=== PATIENT | female | born 1980 | race Caucasian/White ===

== ENCOUNTER 2024-03-28 01:13 | Inpatient (IN) | payer OTHER, SELFPAY ==
--- OUTSIDE RECORDS SUMMARY | 2024-03-28 01:15 | XMS REPORT | Continuity of Care Document ---
Author Name Unknown Address [address] [place] [address] [place], [place] [address]ect Address [address] [place] [address] [address] [place] [address] Care Team Providers Care Radio Commentator Name Role Phone NIC Attending Clinician Unavailable NIC Admitting Clinician Unavailable Encounters Start Date/Time End Date/Time Encounter Type Admission Type Attending Clinicians Care Facility Care Department Encounter ID Source 2022-01-20 00:00:00 2022-01-20 00:00:00 Outpatient [facility] [id number] [facility] Program
[2024-03-28] MEDS ORDERED: NITROGLYCERIN 1 GM PKT TD ONE (01:51)
[2024-03-28] MEDS ORDERED: LORAZEPAM 1 MG TABLET ONE (01:52)
[2024-03-28 02:20] LABS: Arterial Blood Carboxyhemoglob 1.1 % (0-1.5); Blood Gas Oxyhemoglobin 77.9 % (94-97); Blood Gas THB 12.9 g/dl (12-18); Blood O2 Saturation 80.1 % (92-98.5)
[2024-03-28 02:27] LABS: Absolute Basophils 0.1 K/uL (0-0.5); Absolute Eosinophils 0.1 K/uL (0-0.5); Absolute Lymphocytes (CBC) 2.7 K/uL (0.7-4.9); Absolute Monocytes 0.5 K/uL (0.1-1.3); Absolute Neutrophil 5.3 K/uL (1.8-8.0); Basophils % 0.6 % (0-1.3); Eosinophils % 0.6 % (0-4.4); Hematocrit 39.6 % (36.0-45.0); Hemoglobin 13.1 g/dL (12.0-15.0); Lymphocytes % 31.1 % (15.3-44.8); MCV 90.9 fL (80-100); MPV 8.8 fL (7.6-11.3); Monocytes % 6.1 % (3.3-12.3); Neutrophils % 61.6 % (41.7-73.7); Platelets 208 thou/uL (152-406); RBC Red Blood Cell Count 4.36 M/uL (3.86-4.86); Red Cell Distribution Width 14.4 % (12.1-15.2)
[2024-03-28 02:28] LABS: PT Prothrombin Time 11.8 SECONDS (9.4-12.5); PTT, Activated Partial Thromb 30.8 SECONDS (24.3-36.9); Protime INR 1.06
[2024-03-28] MEDS ORDERED: ALBUTEROL 2.5 MG/3 ML NEB SOL ONE (02:31)
[2024-03-28] MEDS ORDERED: ONDANSETRON 4 MG (ODT) TAB ONE (02:31)
[2024-03-28] MEDS ORDERED: METHYLPREDNISOLONE 125 MG INJ ONE (02:31)
[2024-03-28] MEDS ORDERED: HYDROCODONE/APAP 5/325 MG TAB ONE (02:31)
[2024-03-28 02:32] LABS: SARS-CoV-2 Antigen CONTROL BLUE LINE VIS/BG OK; SARS-CoV-2 Antigen Rapid Res Negative (Negative)
[2024-03-28 02:44] LABS: ALT/SGPT 88 U/L (13-56); AST/SGOT 95 U/L (15-37); Albumin 3.2 g/dL (3.4-5.0); Albumin/Globulin Ratio 0.9 (1.1-1.8); Alkaline Phosphatase 94 U/L (45-117); Anion Gap 9.5 mEq/L (5.0-15.0); BUN Blood Urea Nitrogen 18 mg/dL (7-18); Bicarbonate 23 mEq/L (21-32); Bilirubin Direct 0.2 mg/dL (0-0.2); Bilirubin Indirect, Calculated 0.3 mg/dL (0.2-0.8); Bilirubin Total 0.5 mg/dL (0.2-1.0); Creatine Phosphokinase 75 U/L (26-192); Globulin 3.6 g/dL (2.3-3.5); Glomerular Filtration Rate 75 ml/min (=/>90); Glucose Level 115 mg/dL (74-106); Lipase 19 U/L (13-75); Magnesium 1.8 mg/dL (1.6-2.4); NT PRO-BNP 3828 pg/mL (<125); Potassium 3.5 mEq/L (3.5-5.1); Protein, Total 6.8 g/dL (6.4-8.2); Sodium Level 137 mEq/L (136-145); Troponin High Sensitivity 32.9 pg/mL (<58.9)
[2024-03-28 02:52] LABS: C-Reactive Protein < 2.90 mg/L (<3.00)
[2024-03-28 02:59] LABS: Specific Gravity 1.029 (1.005-1.030); Urine Bacteria >50 /HPF (<20); Urine Bilirubin NEGATIVE (Negative); Urine Blood Negative (Negative); Urine Clarity Extremely Turbid (Clear); Urine Color Yellow (Yellow); Urine Culture Reflex Order NOT NEEDED; Urine Glucose NEGATIVE (Negative); Urine Ketones NEGATIVE (Negative); Urine Micro Reflex YN NO BILL MICROSCOPIC; Urine Mucus 2+ /HPF (None Seen); Urine Nitrite 2+ (Negative); Urine Protein 1+ (Negative); Urine RBC <5 /HPF (None Seen); Urine Urobilinogen Normal (Normal); Urine WBC <5 /HPF (<5)
--- NOTE | 2024-03-28 03:31 | RAD REPORT ---
EXAM DESCRIPTION: Extrem Venous W Compress Shaw [facility]: US EXTREMITY VEINS BILATERAL CLINICAL HISTORY: 43 years Female; bilateral lower leg swelling TECHNIQUE: Spectral analysis and color/grayscale sonographic images of both legs were obtained utilizing a high- frequency linear array transducer supplemented with color Doppler, compression and augmentation techniques. COMPARISON: None. FINDINGS: Right leg veins: Common femoral: normal Greater saphenous: normal Superficial femoral: normal Popliteal: normal Calf Veins: normal Left leg veins: Common femoral: normal Greater saphenous: normal Superficial femoral: normal Popliteal: normal Calf Veins: normal IMPRESSION: 1. No sonographic evidence for lower extremity deep venous thrombosis in either leg. Electronically signed by: Shoaib Yung MD 03/28/2024 02:51 AM CDT RP Z9 Due to temporary technical issues with the PACS/[employer] scribe reporting system, reports are being signed by the in-house radiologist without review as a courtesy to ensure prompt reporting the interpreting radiologist is fully responsible for the content of the report. Transcribed Date/Time: 03/28/2024 3:30 AM
--- NOTE | 2024-03-28 04:42 | ER ---
Nurse's Notes [facility] Name: Brian Woods Age: 43 yrs Sex: Female : 1980 Arrival Date: 03/28/2024 Time: 01:13 Bed 18 Private MD: Diagnosis: Acute on chronic diastolic (congestive) heart failure;Hypoxemia Presentation: 03/28 01:29 Chief complaint: Patient states: REALLY SHORT OF BREATH FOR THE LAST FEW DAYS. HAD vc1 COVID A MONTH AGO BUT I FEEL WORSE NOW. I AM REALLY TIRED AND MY LEFT LEFT IS ALSO SWELLING. Coronavirus screen: Client denies travel out of the [place] in the last 14 days. At this time, the client does not indicate any symptoms associated with coronavirus-19. Coronavirus screen: Client reports previous positive COVID test result. POSITIVE 1 MONTH AGO. Ebola Screen: Patient negative for fever greater than or equal to 101.5 degrees Fahrenheit, and additional compatible Ebola Virus Disease symptoms Patient denies exposure to infectious person. Patient denies travel to an Ebola-affected area in the 21 days before illness onset. No symptoms or risks identified at this time. Initial Sepsis Screen: Does the patient meet any 2 criteria? RR > 20 per min. HR > 90 bpm. Yes Does the patient have a suspected source of infection? No. Patient's initial sepsis screen is negative. Risk Assessment: Do you want to hurt yourself or someone else? Patient reports no desire to harm self or others. Onset of symptoms is unknown. 01:29 Method Of Arrival: Ambulatory vc1 01:29 Acuity: ZUNILDA 3 vc1 Triage Assessment: 01:34 General: Appears distressed, uncomfortable, well groomed, well developed, Behavior is vc1 cooperative, anxious. Pain: Complains of pain in left leg. Neuro: Level of Consciousness is awake, alert, obeys commands, Oriented to person, place, time, situation, Appropriate for age. Cardiovascular: Edema LEFT LEG Rhythm is sinus tachycardia. Respiratory: Reports shortness of breath at rest on exertion labored breathing Airway is patent Trachea midline Respiratory effort is even, labored, Respiratory pattern is symmetrical, tachypnea Onset: The symptoms/episode began/occurred FEW DAYS, the patient has moderate shortness of breath. Derm: Skin is intact, is healthy with good turgor, Skin is dry, Skin is normal, Skin temperature is warm. Musculoskeletal: Circulation, motion, and sensation intact. Range of motion: intact in all extremities. 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 - Infectious Disease History:: Denies. - Social history:: Smoking status: Patient reports the use of cigarette tobacco products, denies chronic smoking, but will smoke occasionally, RECENTLY QUIT SMOKING CIGARETTES AFTER SMOKING 15 YEARS., Reported history of juuling and/or vaping. - Family history:: not pertinent. Screenin:[facility] ED Fall Risk Assessment (Adult) History of falling in the last 3 months, vc1 including since admission No falls in past 3 months (0 pts) Confusion or Disorientation No (0 pts) Intoxicated or Sedated No (0 pts) Impaired Gait No (0 pts) Mobility Assist Device Used No (0 pt) Altered Elimination No (0 pt) Score/Fall Risk Level 0 - 2 = Low Risk Oriented to surroundings, Maintained a safe environment, Educated pt \T\ family on fall prevention, incl call for assistance when getting out of bed. Abuse screen: Denies threats or abuse. Nutritional screening: No deficits noted. Tuberculosis screening: No symptoms or risk factors identified. Assessment: 01:20 Reassessment: Patient and/or family updated on plan of care and expected duration. Pain br2 level reassessed. Patient is alert, oriented x 3, equal unlabored respirations, skin warm/dry/pink. General: Appears uncomfortable, Behavior is cooperative, anxious. Cardiovascular: Reports shortness of breath, Heart tones present Capillary refill < 3 seconds Edema is 1+ to left ankle, left foot, left toes, right ankle, right foot and right toes pitting to right ankle, right foot and right toes. Cardiovascular: Reports. Cardiovascular: Reports shortness of breath, Heart tones Edema. Respiratory: Reports shortness of breath at rest on exertion Airway is patent Respiratory effort is asymmetrical, pursed lip, Respiratory pattern is symmetrical, tachypnea Breath sounds are clear bilaterally. Breath sounds are diminished bilaterally. Onset: The symptoms/episode began/occurred 1 week ago. 03:37 Reassessment: Patient and/or family updated on plan of care and expected duration. Pain br2 level reassessed. Patient is alert, oriented x 3, equal unlabored respirations, skin warm/dry/pink. PT RETURNS FROM CT. NC \T\3L O2 SATS 85%. INCREASE 02 FLOW RATE TO 4L N/C AND SATS REMAIN AT 87%. DR TREVIZO NOTIFIED. VERBAL ORDER TO SWITCH TO SIMPLE MASK. SIMPLE MASK AT 5L PT AT 90%. Cardiovascular: 04:06 Reassessment: Patient and/or family updated on plan of care and expected duration. Pain br2 level reassessed. Patient is alert, oriented x 3, equal unlabored respirations, skin warm/dry/pink. UNABLE TO KEEP PT'S 02 SATS ABOVE 85%. PT IS ON SIMPLE MASK \T\7L AT 84% SATS. DR GARZON NOTIFED. NON-REBREATHER PLACED ON PT \T\10L UNTIL RT ARRIVES WITH BIPAP...PT AT 90%. 04:10 Reassessment: RT AT BEDSIDE PUTTING PT ON BIPAP. br2 04:21 Reassessment: Patient and/or family updated on plan of care and expected duration. Pain br2 level reassessed. Patient is alert, oriented x 3, equal unlabored respirations, skin warm/dry/pink. PT IS ON BIPAP AT 50% O2 SATS AT 92-93% Patient states symptoms have improved. 07:00 Reassessment: BED ASSIGNED, ADMIT PENDING. bp Vital Signs: 01:29 BP 135 / 96; Pulse 100; Resp 24; Pulse Ox 84% on R/A; Weight 81.65 kg; Height 5 ft. 5 vc1 in. ; 03:44 BP 138 / 84; Pulse 93; Resp 16; Pulse Ox 90% on 5 lpm Simple Mask; br2 04:30 BP 126 / 85; Pulse 89; Resp 16; Pulse Ox 92% on BIPAP; br2 05:30 BP 136 / 97; Pulse 91; Resp 18 S; Pulse Ox 97% on BIPAP; br2 06:30 BP 117 / 91; Pulse 85; Resp 16; Pulse Ox 99% on BIPAP; br2 07:00 BP 135 / 92; Pulse 90; Resp 18; Pulse Ox 99% ; bp 01:29 Body Mass Index 29.95 (81.65 kg, 165.1 cm) vc1 ED Course: 01:15 Patient arrived in ED. jj6 01:20 Provided Education on: plan of care. br2 01:20 Inserted saline lock: 22 gauge in right antecubital area, using aseptic technique. br2 Blood collected. Flushed with 10 mL NS. 01:28 Simón Trevizo MD is Attending Physician. sp4 01:31 Triage completed. vc1 01:32 Arm band placed on left wrist. vc1 01:36 Patient has correct armband on for positive identification. Placed in gown. Bed in low vc1 position. Call light in reach. colloid mill operator on. Pulse ox on. NIBP on. 01:42 Noemi Nuno RN is Primary Nurse. br2 01:44 SARS RAPID Sent. br2 01:44 T4 Free Sent. br2 01:45 BMP Sent. br2 01:45 CBC with Diff Sent. br2 01:45 CPK Sent. br2 01:45 Hepatic Function Sent. br2 01:46 Lipase Sent. br2 01:46 Magnesium Sent. br2 01:46 NT PRO-BNP Sent. br2 01:46 PT-INR Sent. br2 01:46 Troponin HS Sent. br2 02:28 Extrem Venous W Compression Shaw US In Process Unspecified. EDMS 02:56 Urine collected: clean catch specimen, ryan colored. oe 03:27 CT Chest For PE Angio In Process Unspecified. EDMS 04:42 Karo Bauer MD is Hospitalizing Provider. sp4 05:01 Troponin High Sensitivity Sent. br2 07:31 No provider procedures requiring assistance completed. Patient admitted, IV remains in bp place. Administered Medications: 02:41 Drug: LORazepam PO 1 mg PO once Route: PO; br2 06:04 Follow up: Response: No adverse reaction lg3 02:41 Drug: Nitroglycerin Transdermal Ointment 2 % 0.5 inches Transdermal once Route: br2 Transdermal; Site: anterior chest wall; 02:41 Drug: HYDROcodone-acetaminophen PO 5 mg-325 mg 2 tabs PO once Route: PO; br2 06:04 Follow up: Response: No adverse reaction; Marked relief of symptoms lg3 02:41 Drug: Ondansetron PO 4 mg PO once Route: PO; br2 06:04 Follow up: Response: No adverse reaction lg3 02:41 Drug: Albuterol Inhalation 2.5 mg Inhalation once Route: Inhalation; br2 02:41 Drug: MethylPrednisoLONE IVP 125 mg IVP once Route: IVP; Site: right antecubital; br2 06:04 Follow up: Response: No adverse reaction lg3 02:56 Not Given (wrong routee): methylprednisolone sodium [id number] mg IM once br2 05:00 Drug: Furosemide IVP 40 mg IVP once; give over 2 minutes Route: IVP; Site: right br2 antecubital; 06:04 Follow up: Response: No adverse reaction lg3 05:00 Drug: Aspirin PO Chewable Tablet 324 mg PO once; 81 mg tablets x 4 Route: PO; br2 06:04 Follow up: Response: No adverse reaction lg3 Medication: 01:34 VIS not applicable for this client. vc1 Outcome: 04:42 Decision to Hospitalize by Provider. sp4 07:30 Admitted to Med/surg accompanied by tech, via stretcher, room 221, bp 07:30 Condition: stable 07:30 Instructed on the need for admit, 07:31 Patient left the ED. bp Signatures: Dispatcher [employer] EDMS Maninder Flowers Brian RN Kate Balderas RN RN lg3 Yarelis Chavez jj6 Sammie Rahman RN RN vc1 Simón Trevizo MD MD sp4 Noemi Nuno RN RN br2 Corrections: (The following items were deleted from the chart) 01:45 01:44 Influenza Screen (A \T\ B)+BA.LAB.BRZ drawn and sent. br2 EDMS 03:37 01:20 Respiratory: Reports shortness of breath at rest on exertion Airway is patent br2 Respiratory effort is asymmetrical, pursed lip, Respiratory pattern is symmetrical, tachypnea Breath sounds are clear bilaterally. Onset: The symptoms/episode began/occurred 1 week ago, br2
--- NOTE | 2024-03-28 04:42 | EDPHYS ---
Physician Documentation [facility] Name: Brian Woods Age: 43 yrs Sex: Female : 1980 Arrival Date: 03/28/2024 Time: 01:13 Bed 18 Private MD: ED Physician Simón Trevizo HPI: 03/28 01:28 This 43 yrs old Female presents to ER via Unassigned with complaints of sp4 Shortness Of Breath. 02:25 43-year-old female presents with worsening shortness of breath with physical exertion sp4 and at rest for the past 3 weeks, patient states that she contracted COVID approximately 1 month ago. Now patient states she wakes up at night feeling short of breath and has to sit up on the bed. No similar prior symptoms in the past . 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 - Infectious Disease History:: Denies. - Social history:: Smoking status: Patient reports the use of cigarette tobacco products, denies chronic smoking, but will smoke occasionally, RECENTLY QUIT SMOKING CIGARETTES AFTER SMOKING 15 YEARS., Reported history of juuling and/or vaping. - Family history:: not pertinent. ROS: 02:25 Constitutional: Negative for fever, chills, and weight loss, positive dyspnea with sp4 exertion, positive shortness of breath with rest, positive chest discomfort. Positive orthopnea 02:25 All other systems are negative, Exam: 02:25 Constitutional: This is a well developed, well nourished patient who is awake, alert, sp4 and in no acute distress. Head/Face: Normocephalic, atraumatic. Eyes: Pupils equal round and reactive to light, extra-ocular motions intact. Lids and lashes normal. Conjunctiva and sclera are not injected. Cornea within normal limits. Periorbital areas with no swelling, redness, or edema. ENT: Nares patent. No nasal discharge, no septal abnormalities noted. Tympanic membranes are normal and external auditory canals are clear. Oropharynx with no redness, swelling, or masses, exudates, or evidence of obstruction, uvula midline. Mucous membranes moist. Neck: Trachea midline, no thyromegaly or masses palpated, and no cervical lymphadenopathy. Supple, full range of motion without nuchal rigidity, or vertebral point tenderness. Chest/axilla: Normal chest wall appearance and motion. Nontender with no deformity. No lesions are appreciated. Cardiovascular: Regular rate and rhythm with a normal S1 and S2. No gallops, murmurs, or rubs. Normal PMI, no JVD. No pulse deficits. Respiratory: Lungs have equal breath sounds bilaterally, clear to auscultation and percussion. No rales, rhonchi or wheezes noted. No increased work of breathing, no retractions or nasal flaring. Abdomen/GI: Soft, with normal bowel sounds. No distension or tympany. No guarding or rebound. No evidence of tenderness throughout. Back: No spinal tenderness. No costovertebral tenderness. Skin: Warm, dry with normal turgor. Normal color with no rashes, no lesions, and no evidence of cellulitis. MS/ Extremity: Pulses equal, no cyanosis. Neurovascular intact. Full, normal range of motion. Neuro: Awake and alert, GCS 15, oriented to person, place, time, and situation. Cranial nerves II-XII grossly intact. Motor strength 5/5 in all extremities. Sensory grossly intact. Psych: Awake, alert, with orientation to person, place and time. Behavior, mood, and affect are within normal limits 02:32 ECG was reviewed by the Attending Physician. EKG 0 126 normal sinus rhythm, rate 88, sp4 right ventricular hypertrophy, ST depression leads II, III, aVF, multiple ST depressions. Vital Signs: 01:29 BP 135 / 96; Pulse 100; Resp 24; Pulse Ox 84% on R/A; Weight 81.65 kg; Height 5 ft. 5 vc1 in. ; 03:44 BP 138 / 84; Pulse 93; Resp 16; Pulse Ox 90% on 5 lpm Simple Mask; br2 04:30 BP 126 / 85; Pulse 89; Resp 16; Pulse Ox 92% on BIPAP; br2 05:30 BP 136 / 97; Pulse 91; Resp 18 S; Pulse Ox 97% on BIPAP; br2 06:30 BP 117 / 91; Pulse 85; Resp 16; Pulse Ox 99% on BIPAP; br2 07:00 BP 135 / 92; Pulse 90; Resp 18; Pulse Ox 99% ; bp 01:29 Body Mass Index 29.95 (81.65 kg, 165.1 cm) vc1 MDM: 01:30 Patient medically screened. sp4 02:48 ED course: Bilateral venous Doppler ultrasound preliminary report---- negative for sp4 bilateral lower extremity DVT . 02:57 Differential diagnosis: Anxiety Reaction asthma, Bronchitis CHF exacerbation, Chronic sp4 Obstructive Pulmonary Disease pneumonia, Pneumothorax Psychogenic pulmonary edema, Pulmonary Embolism. ED course: EXAM DESCRIPTION: Extrem Venous W Compress Shaw RadLex: US EXTREMITYVEINS BILATERAL CLINICAL HISTORY: 43 years Female; bilateral lower leg swelling TECHNIQUE: Spectral analysis and color/grayscale sonographic images of both legs were obtained utilizing a high-frequency linear array transducer supplemented with color Doppler, compression and augmentation techniques. COMPARISON: None. FINDINGS: Right leg veins: Common femoral: normal Greater saphenous: normal Superficial femoral: normal Popliteal: normal Calf Veins: normal Left leg veins: Common femoral: normal Greater saphenous: normal Superficial femoral: normal Popliteal: normal Calf Veins: normal IMPRESSION: 1. No sonographic evidence for lower extremity deep venous thrombosis in either leg.. 04:38 ED course: CLINICAL HISTORY: Chest pain. COMPARISON: None. TECHNIQUE: CT sp4 CHESTANGIOGRAPHYWITH IV CONTRAST on 03/28/2024 1:41 AM CDT. MIPS reconstructions were generated. This exam was performed according to our departmental dose-optimization program, which includes automated exposure control, adjustment of the mA and/or kV according to patient size and/or use of iterative reconstruction technique. MIP images were generated. FINDINGS: Thoracic aorta is normal in course and caliber without aneurysm or dissection. Pulmonary arteries are adequately opacified without acute or chronic filling defects. The heart is normal in size. There is no pericardial effusion. Intrathoracic lymph nodes are not enlarged. There is no pleural effusion, pleural thickening or pneumothorax. Central airways are patent. Lungs are clear with no consolidation, mass or interstitial lung disease. There are no acute abnormalities within the limited images of the upper abdomen. There are no acute osseous findings. No suspicious bony lesions. IMPRESSION: No aortic dissection or aneurysm. No pulmonary embolus. No pneumonia. Electronically signed by: Franklyn Butler MD 03/28/2024 04:25 AM . 04:42 Data reviewed: vital signs, nurses notes, old medical records, lab test result(s), EKG, sp4 radiologic studies, CT scan, ultrasound. Consideration of Admission/Observation Patient was admitted/placed on observation. Escalation of care including admission/observation considered. Management of patient was discussed with the following: Hospitalist: Dr. Bauer . 04:42 ED course: CT has revealed - No aortic dissection or aneurysm. No pulmonary embolus. No sp4 pneumonia. Patient initiated on BIPAP . Stable for admission . 03/28 01: Order name: BMP; Complete Time: 02:57 4 03/28 01:29 Order name: Blood Culture Adult (2) sp4 03/28 01:29 Order name: CBC with Diff; Complete Time: 02:32 4 03/28 01:29 Order name: CPK; Complete Time: 02:57 4 03/28 01:29 Order name: Hepatic Function; Complete Time: 02:57 4 03/28 01:29 Order name: Lipase; Complete Time: 02:57 03/28 01:29 Order name: Magnesium; Complete Time: 02:57 03/28 01:29 Order name: NT PRO-BNP; Complete Time: 02:57 4 03/28 01:29 Order name: PT-INR; Complete Time: 02:32 4 03/28 01:29 Order name: Ptt, Activated; Complete Time: 02:32 4 03/28 01:29 Order name: Troponin HS; Complete Time: 02:57 4 03/28 01:29 Order name: ABG; Complete Time: 02:23 4 03/28 01:29 Order name: CRP; Complete Time: 02:57 03/28 01:29 Order name: TSH; Complete Time: 02:57 4 03/28 01:29 Order name: T4 Free; Complete Time: 02:57 4 03/28 01:29 Order name: SARS RAPID; Complete Time: 02:32 4 03/28 01:29 Order name: Influenza Screen (a \T\ B); Complete Time: 02:48 4 03/28 01:42 Order name: Urinalysis W/Microscopic; Complete Time: 04:03 4 03/28 01:42 Order name: Test, Serum; Complete Time: 02:36 sp4 03/28 04:40 Order name: Troponin High Sensitivity; Complete Time: 05:50 sp4 03/28 04:40 Order name: ABG; Complete Time: 07:16 sp4 03/28 05:43 Order name: CBC with Automated Diff EDMS 03/28 05:43 Order name: CBC with Automated Diff EDMS 03/28 05:43 Order name: Comprehensive Metabolic Panel EDMS 03/28 05:43 Order name: Comprehensive Metabolic Panel EDMS 03/28 05:43 Order name: Magnesium EDMS 03/28 05:43 Order name: Magnesium EDMS 03/28 05:43 Order name: Phosphorus EDMS 03/28 05:43 Order name: Phosphorus EDMS 03/28 01:41 Order name: CT Chest For PE Angio; Complete Time: 07:16 sp4 03/28 01:46 Order name: Extrem Venous W Compression Shaw US; Complete Time: 07:16 sp4 03/28 05:43 Order name: Echo without Doppler (2D) EDMS 03/28 01:29 Order name: Cardiac monitoring; Complete Time: 01:45 sp4 03/28 01:29 Order name: EKG - Nurse/Tech; Complete Time: 01:45 sp4 03/28 01:29 Order name: IV Saline Lock; Complete Time: :45 sp4 03/28 01:29 Order name: Labs collected and sent; Complete Time: :45 sp4 03/28 01:29 Order name: O2 Per Protocol; Complete Time: 01:47 sp4 03/28 01:29 Order name: O2 Sat Monitoring; Complete Time: 06:05 sp4 EC:32 Rate is 88 beats/min. Rhythm is regular, Normal Sinus Rhythm. QRS [place] is Normal. [place] sp4 interval is normal. QRS interval is normal. QT interval is normal. No Q waves. T waves are Inverted in leads V3, V4, V5, V6. ST Segment is depressed in leads II, III, aVF. Clinical impression: Cardiac ischemia. Interpreted by me. Reviewed by me. Administered Medications: 02:41 Drug: LORazepam PO 1 mg PO once Route: PO; br2 06:04 Follow up: Response: No adverse reaction lg3 02:41 Drug: Nitroglycerin Transdermal Ointment 2 % 0.5 inches Transdermal once Route: br2 Transdermal; Site: anterior chest wall; 02:41 Drug: HYDROcodone-acetaminophen PO 5 mg-325 mg 2 tabs PO once Route: PO; br2 06:04 Follow up: Response: No adverse reaction; Marked relief of symptoms lg3 02:41 Drug: Ondansetron PO 4 mg PO once Route: PO; br2 06:04 Follow up: Response: No adverse reaction lg3 02:41 Drug: Albuterol Inhalation 2.5 mg Inhalation once Route: Inhalation; br2 02:41 Drug: MethylPrednisoLONE IVP 125 mg IVP once Route: IVP; Site: right antecubital; br2 06:04 Follow up: Response: No adverse reaction lg3 02:56 Not Given (wrong routee): methylprednisolone sodium [id number] mg IM once br2 05:00 Drug: Furosemide IVP 40 mg IVP once; give over 2 minutes Route: IVP; Site: right br2 antecubital; 06:04 Follow up: Response: No adverse reaction lg3 05:00 Drug: Aspirin PO Chewable Tablet 324 mg PO once; 81 mg tablets x 4 Route: PO; br2 06:04 Follow up: Response: No adverse reaction lg3 Disposition: 04:41 Critical Care:. sp4 Disposition Summary: 03/28/24 04:42 Hospitalization Ordered Notes: Hospitalization Status: Inpatient Admission sp4 Provider: Karo Bauer Location: Telemetry/[facility] (Inpatient) sp4 Condition: Stable sp4 Problem: new sp4 Symptoms: have improved sp4 Bed/Room Type: Standard sp4 Room Assignment: [facility](03/28/24 06:08) [facility] Diagnosis - Acute on chronic diastolic (congestive) heart failure sp4 - Hypoxemia sp4 Forms: - Medication Reconciliation Form sp4 - SBAR form sp4 - Leadership Thank You Letter sp4 Critical care time excluding procedures: 04:41 Critical care time: Bedside Care: 36 minutes, Consultation: 12 minutes, Family sp4 Intervention: 12 minutes. Total time: 60 minutes Signatures: Dispatcher [employer] Sammie Green RN RN vc1 Simón Trevizo MD MD sp4 Shirley Vega [facility] Noemi Nuno RN RN br2 Kate Rabago RN lg3 Corrections: (The following items were deleted from the chart) 01:29 01:29 BASIC METABOLIC PANEL+C.LAB.BRZ ordered. EDMS EDMS 01: 01:29 BLOOD CULTURE*+BA.LAB.BRZ ordered. EDMS EDMS : 01:29 CBC+H.LAB.BRZ ordered. EDMS EDMS : 01:29 CREATINE PHOSPHOKINASE+C.LAB.BRZ ordered. EDMS EDMS : 01:29 HEPATIC FUNCTION+C.LAB.BRZ ordered. EDMS EDMS : 01:29 LIPASE+C.LAB.BRZ ordered. EDMS EDMS : 01:29 MAGNESIUM+C.LAB.BRZ ordered. EDMS EDMS : 01:29 PROBNP+C.LAB.BRZ ordered. EDMS EDMS : 01:29 PROTIME (+INR)+COAG.LAB.BRZ ordered. EDMS EDMS : 01:29 PTT, ACTIVATED+COAG.LAB.BRZ ordered. EDMS EDMS 01: 01:29 Troponin High Sensitivity+C.LAB.BRZ ordered. EDMS EDMS 01:30 01:30 C-REACTIVE PROTEIN+C.LAB.BRZ ordered. EDMS EDMS 01:30 01:30 THYROID STIMULAT HORMONE+C.LAB.BRZ ordered. EDMS EDMS 01:30 01:30 T4 FREE+C.LAB.BRZ ordered. EDMS EDMS 01:45 01:30 Influenza Screen (A \T\ B)+BA.LAB.BRZ ordered. EDMS EDMS 04:04 04:04 BiPap ([employer] Only)+RC.RAD.BRZ ordered. EDMS EDMS 04:40 04:40 Troponin High Sensitivity+C.LAB.BRZ ordered. EDMS EDMS 04:40 04:40 Arterial Blood Gas+RC.LAB.BRZ ordered. EDMS EDMS 06:08 04:42 sp4 kmf
[2024-03-28] MEDS ORDERED: ASPIRIN 81 MG CHEWABLE TABLET ONE (04:52)
[2024-03-28] MEDS ORDERED: FUROSEMIDE 40 MG/4 ML VIAL ONE (04:53)
[2024-03-28] MEDS ORDERED: ALBUTEROL 2.5 MG/3 ML NEB SOL NEB PRN ×2 (05:38→07:17)
--- NOTE | 2024-03-28 05:45 | P.HP ---
Certification for Inpatient Patient admitted to: Inpatient With expected LOS: >2 Midnights Practitioner: I am a practitioner with admitting privileges, knowledge of patient current condition, hospital course, and medical plan of care. Services: Services provided to patient in accordance with Admission requirements found in Title 42 Section 412.3 of the Code of Federal Regulations Patient History Date of Service: 03/28/24 Reason for admission: dyspnea History of Present Illness: Shortness of breath 43-year-old female presented to ER with complains of shortness of breath. Onset about 3 weeks ago. Reported that she had COVID in the last 1 month. She does report some dyspnea at nighttime, orthopnea, cough with yellow sputum. She did report history of tobacco use and currently occasionally vapes. On arrival in the emergency room she was noted to be hypoxemic sats were in the 80s on room air. Despite having nasal cannula she still had O2 requirement she was placed on BiPAP. Her labs were notable for an elevated BNP, normal troponin x 2 and normal CRP and no leukocytosis her COVID was also negative She was noted to have elevated BNP. A CTA was done that was negative for PE. Allergies No Known Yazan Allergy (Uncoded 02/20/17 01:33) Unknown Review of Systems 10-point ROS is otherwise unremarkable Respiratory: Shortness of Breath Physical Examination - Vital Signs Pulse: 90 Pulse Ox (%): 95 - Physical Exam General: Alert, Oriented x3 HEENT: Atraumatic, Normocephalic Cardiovascular: Regular rate/rhythm, Normal S1 S2 Gastrointestinal: Soft and benign, Non-distended, No tenderness Musculoskeletal: No clubbing - Studies Laboratory Data (last 24 hrs) 03/28/24 03/28/24 03/28/24 01:39 01:39 01:39 WBC 8.60 Hgb 13.1 Hct 39.6 Plt Count 208 PT 11.8 INR 1.06 APTT 30.8 Sodium 137 Potassium 3.5 BUN 18 Creatinine 0.96 Glucose 115 H Magnesium 1.8 Total Bilirubin 0.5 AST 95 H ALT 88 H Alkaline Phosphatase 94 Lipase 19 Microbiology Data (last 24 hrs): 03/28/24 01:39 Nasopharnyx Influenza Type A Antigen Screen - Final 03/28/24 01:39 Nasopharnyx Influenza Type B Antigen Screen - Final Assessment and Plan - Problems (Diagnosis) (1) Dyspnea Current Visit: Yes Status: Acute (2) Elevated brain natriuretic peptide (BNP) level Current Visit: Yes Status: Acute - Plan 43-year-old female presents with 3-week history of dyspnea and hypoxemia. She had COVID 1 month ago. She does have tobacco use. Noted to have elevated BNP. A CTA was done which did not show much pulmonary edema. And was negative for PE #acute hypoxemic respiratory failure #tobacco use/ #elevated BNP #recent covid 19 infection Plan: 1. admit to telemetry 2. continue O2, wean as possible 3. prn albuterol 4. check echocardiogram 5. repeat ABG 6. consider cardiology consultation 7. check sputum culture 8. repeat cxr in AM 9. repeat EKG and troponin DVT: Lovenox - Advance Directives Does patient have a Living Will: No Does patient have a Durable POA for Healthcare: No
--- NOTE | 2024-03-28 06:01 | RAD REPORT ---
CLINICAL HISTORY: Chest pain. COMPARISON: None. TECHNIQUE: CT CHEST ANGIOGRAPHY WITH IV CONTRAST on 03/28/2024 1:41 AM CDT. MIPS reconstructions were generated. This exam was performed according to our departmental dose-optimization program, which includes autom ated exposure control, adjustment of the mA and/or kV according to patient size and/or use of iterative reconstruction technique. MIP images were generated. FINDINGS: Thoracic aorta is normal in course and caliber without aneurysm or dissection. Pulmonary arteries are adequately opacified without acute or chronic filling defects. The heart is normal in size. There is no pericardial effusion. Intrathoracic lymph nodes are not enla rged. There is no pleural effusion, pleural thickening or pneumothorax. Central airways are patent. Lungs a re clear with no consolidation, mass or interstitial lung disease. There are no acute abnormalities within the limited images of the upper abdomen. There are no acute osseous findings. No suspicious bony lesions. IMPRESSION: No aortic dissection or aneurysm. No pulmonary embolus. No pneumonia. Electronically signed by: Franklyn Butler MD 03/28/2024 04:25 AM CDT RP Due to temporary technical issues with the PACS/Vayyar reporting system, reports are being gianluca d by the in-house radiologist without review as a courtesy to ensure prompt reporting the interpreting radiologist is fully responsible for the content of the report. Transcribed Date/Time: 03/28/2024 6:01 AM
[2024-03-28 07:10] LABS: Blood O2 Saturation 98.8 % (92-98.5)
[2024-03-28 07:11] LABS: Blood Gas THB 14.2 g/dl (12-18)
[2024-03-28] MEDS: ENOXAPARIN 40 MG/0.4 ML SQ SCH (09:22)
[2024-03-28 15:20] VITALS: BMI 29.9
--- NOTE | 2024-03-28 15:48 | P.PN ---
Date of Service: 03/28/24 Patient seen and examined. She reported shortness of breath has improved. She has been weaned from 100% nonrebreather to oxygen by nasal cannula which she is tolerating. She is currently on [address] chest result reviewed-no infiltrate or edema, no PE. Hypoxia likely secondary to bronchospasms/COPD exacerbation. Plan: Scheduled bronchodilators, IV steroid. Titrate oxygen. Negative procalcitonin. No indication for antibiotics at this time.
--- NOTE | 2024-03-28 16:52 | EKG ---
Test Date: 2024-03-28 Test Time: 01:26:45 Staking Technician: CARY MEASUREMENT RESULTS: Intervals: Rate: 88 OK: 142 QRSD: 100 QT: 376 QTc: 454 [place]: P: 55 OK: 142 QRS: 114 T: -54 INTERPRETIVE STATEMENTS: Normal sinus rhythm Right ventricular hypertrophy Septal infarct, age undetermined ST & T wave abnormality, consider inferior ischemia ST & T wave abnormality, consider anterolateral ischemia Abnormal ECG No previous ECG available for comparison Electronically Signed On 03-28-24 16:50:08 CDT by Jhony Agarwal
[2024-03-28] MEDS: METHYLPREDNISOLONE 40 MG INJ IV SCH (16:56)
[2024-03-28] MEDS: ACETAMINOPHEN 325 MG TABLET PO PRN (16:56)
[2024-03-28] MEDS: IPRATROPIUM BROM 0.5MG/2.5ML NEB SCH (19:10)
[2024-03-28] MEDS: ALBUTEROL 2.5 MG/3 ML NEB SOL NEB SCH (19:10)
[2024-03-29 08:02] LABS: Absolute Lymphocytes (CBC) 1.2 K/uL (0.7-4.9); Absolute Monocytes 0.6 K/uL (0.1-1.3); Absolute Neutrophil 19.5 K/uL (1.8-8.0); Basophils % 0.1 % (0-1.3); Hematocrit 42.2 % (36.0-45.0); Hemoglobin 13.7 g/dL (12.0-15.0); Lymphocytes % 5.7 % (15.3-44.8); MCH 29.5 pg (27.0-35.0); MCHC 32.4 g/dL (32.0-36.0); MCV 91.2 fL (80-100); MPV 8.5 fL (7.6-11.3); Monocytes % 2.9 % (3.3-12.3); Neutrophils % 91.3 % (41.7-73.7); Platelets 245 thou/uL (152-406); RBC Red Blood Cell Count 4.63 M/uL (3.86-4.86); Red Cell Distribution Width 14.2 % (12.1-15.2)
[2024-03-29 08:18] LABS: Albumin 3.1 g/dL (3.4-5.0); Albumin/Globulin Ratio 0.8 (1.1-1.8); Anion Gap 12.1 mEq/L (5.0-15.0); Bilirubin Total 0.4 mg/dL (0.2-1.0); Globulin 3.9 g/dL (2.3-3.5); Magnesium 1.9 mg/dL (1.6-2.4); Potassium 4.1 mEq/L (3.5-5.1)
--- NOTE | 2024-03-29 09:09 | ECHO ---
HEIGHT: 5 ft 5 in WEIGHT: 180 lb 0 oz DATE OF STUDY: 03/28/[address]: Karo Bauer MD 2-DIMENSIONAL: YES M.MODE: YES DOPPLER: YES COLOR FLOW: YES TDS: NO PORTABLE: YES DEFINITY: NO BUBBLE STUDY: NO DIAGNOSIS: DYSPNEA CARDIAC HISTORY: CATHERIZATION: NO SURGERY: NO PROSTHETIC VALVE: NO PACEMAKER: NO MEASUREMENTS (cm) DIASTOLIC (NORMALS) SYSTOLIC (NORMALS) IVSd 1.3 (0.6-1.2) LA Diam 2.4 (1.9-4.0) LVEF 63% LVIDd 3.8 (3.5-5.7) LVIDs 2.5 (2.0-3.5) %FS 33% LVPWd 1.3 (0.6-1.2) Ao Diam 3.1 (2.0-3.7) 2 DIMENSIONAL ASSESSMENT: RIGHT ATRIUM: ENLARGED LEFT ATRIUM: NORMAL RIGHT VENTRICLE: SEVERELY DILATED RV LEFT VENTRICLE: NORMAL TRICUSPID VALVE: SEVERE TRICUSPID REGURGITATION MITRAL VALVE: TRACE MITRAL REGURGITATION PULMONIC VALVE: NORMAL AORTIC VALVE: NORMAL PERICARDIAL EFFUSION: NONE AORTIC ROOT: NORMAL LEFT VENTRICULAR WALL MOTION: NORMAL. DOPPLER/COLOR FLOW: SEE BELOW. COMMENTS: 1. NORMAL LEFT VENTRICULAR EJECTION FRACTION 60-65% WITH NORMAL WALL MOTION. 2. SEVERE PULMONARY HYPERTENSION WITH RIGHT VENTRICULAR SYSTOLIC PRESSURE > 120 mmHg. 3. SEVERE TRICUSPID REGURGITATION. 4. SEVERELY DILATED RIGHT VENTRICLE WITH MODERATE DYSFUNCTION. 5. GRADE I DIASTOLIC DYSFUNCTION. TECHNOLOGIST: RONNY NAQVI
[2024-03-29 09:23] LABS: Blood Morphology Comment NOT SEEN (NOT SEEN); Differential Total Cells Count 100; Lymphocytes 11 % (15-42); Monocytes 3 % (0-10); Platelet Estimate ADEQ; Segmented Neutrophils 86 % (40-80); Toxic Granulation 1+
[2024-03-29] MEDS: levoFLOXacin 500 MG TAB PO SCH (10:33)
[2024-03-29] MEDS: DULERA 200/5 (MOMETASONE/FORMOTEROL) INHALER IH SCH (10:33)
--- NOTE | 2024-03-29 14:11 | P.PN ---
Subjective Date of Service: 03/29/24 Chief Complaint: dyspnea Subjective: Improving (Is improving has been sick for the past 3 to 4 weeks complaining of shortness of breath and vapes by still slight swelling of her lower extremity) Review of Systems 10-point ROS is otherwise unremarkable Physical Examination - Vital Signs Temperature: 98.1 F Blood Pressure: 140/88 Pulse: 103 Respirations: 22 Pulse Ox (%): 93 - Physical Exam General: Alert, Oriented x3 Respiratory: Clear to auscultation bilaterally Cardiovascular: No edema Gastrointestinal: Normal bowel sounds, Soft and benign Assessment And Plan - Current Problems (Diagnosis) (1) Pulmonary hypertension Current Visit: Yes Status: Acute Plan: Patient admitted with 3 to 4 weeks of dyspnea with lower extremity edema echocardiogram shows severe pulmonary hypertension with right ventricular dilatation significant hypoxemia on admission CBC is normal the chest no evidence of thromboembolism dense of heart failure will effusions will recommend transfer to a tertiary care center will consult cardiology for right heart cath start on sildenafil low-dose and advance lab work ordered
[2024-03-29] MEDS: SILDENAFIL CITRATE 20 MG TABLET PO SCH (18:38)
[2024-03-29] MEDS ORDERED: predniSONE 20 MG TAB PO SCH (21:00)
[2024-03-29] MEDS ORDERED: SILDENAFIL PO SCH (21:00)
[2024-03-30 08:04] LABS: Absolute Lymphocytes (CBC) 3.1 K/uL (0.7-4.9); Absolute Neutrophil 9.4 K/uL (1.8-8.0); Basophils % 0.2 % (0-1.3); Eosinophils % 0.2 % (0-4.4); Hematocrit 40.4 % (36.0-45.0); Hemoglobin 13.2 g/dL (12.0-15.0); Lymphocytes % 22.9 % (15.3-44.8); MCH 29.9 pg (27.0-35.0); MCHC 32.7 g/dL (32.0-36.0); MCV 91.6 fL (80-100); MPV 8.3 fL (7.6-11.3); Monocytes % 7.2 % (3.3-12.3); Neutrophils % 69.5 % (41.7-73.7); Platelets 222 thou/uL (152-406); RBC Red Blood Cell Count 4.41 M/uL (3.86-4.86); Red Cell Distribution Width 13.9 % (12.1-15.2)
[2024-03-30 08:23] LABS: Albumin 2.9 g/dL (3.4-5.0); Albumin/Globulin Ratio 0.8 (1.1-1.8); Anion Gap 10.6 mEq/L (5.0-15.0); Bilirubin Total 0.3 mg/dL (0.2-1.0); Globulin 3.6 g/dL (2.3-3.5); Protein, Total 6.5 g/dL (6.4-8.2)
[2024-03-30 08:24] LABS: Magnesium 1.8 mg/dL (1.6-2.4); Potassium 3.6 mEq/L (3.5-5.1)
--- NOTE | 2024-03-30 08:44 | P.PN ---
Subjective Date of Service: 03/30/24 Chief Complaint: Severe pulmonary hypertension Patient feels a little bit better swelling has decreased no new complaints Review of Systems 10-point ROS is otherwise unremarkable Physical Examination - Vital Signs Temperature: 98.4 F Blood Pressure: 125/65 Pulse: 68 Respirations: 18 Pulse Ox (%): 97 - Physical Exam General: Alert, Oriented x3 Respiratory: Clear to auscultation bilaterally Cardiovascular: No edema, Regular rate/rhythm - Studies Laboratory Data (last 24 hrs) 03/29/24 07:47 WBC 21.40 H Hgb 13.7 Hct 42.2 Plt Count 245 Assessment And Plan - Current Problems (Diagnosis) (1) Pulmonary hypertension Current Visit: Yes Status: Acute Plan: Patient has a new diagnosis of presumed severe pulmonary hypertension right ventricular dilatation cardiology consult possibly right heart cath increase sildenafil to 20 mg twice a day will transfer to a tertiary care center high risk pulmonary hypertension ambulate Discharge Plan: Home Plan to discharge in: 24 Hours
[2024-03-30] MEDS: SILDENAFIL CITRATE 20 MG TABLET PO SCH (09:27)
[2024-03-30 21:00] VITALS: BP 109/60; TEMP 98.9
[2024-03-30 21:01] VITALS: O2SAT 94
--- NOTE | 2024-03-31 07:11 | P.DS ---
Admission Date: 03/29/24 Discharge Date: 03/31/24 Disposition: TRANSFER TO [facility] Reason for Admission: Severe pulmonary hypertension - Problems (1) Pulmonary hypertension Status: Acute Brief History of Present Illness: Patient is 43 years of age presented with dyspnea on exertion lower extremity edema Hospital Course: Patient was diagnosed with severe pulmonary hypertension on echocardiogram stable was started on sildenafil vital signs oxygenation were all stable she was transferred to tertiary care center right heart cath and urgent treatment artery pressure was over 120 elevated BNP makes her very high risk patient there is no evidence of thromboembolism stable at the time of transfer discussed with Dr. Ngoc Cody [place] Vital Signs/Physical Exam: Temp Pulse Resp BP Pulse Ox 98.9 F 88 15 109/60 97 03/30/24 20:00 03/30/24 20:00 03/30/24 20:00 03/30/24 20:00 03/30/24 20:00 Laboratory Data at Discharge: WBC Cancelled 03/31/24 05:00 Hgb Cancelled 03/31/24 05:00 Hct Cancelled 03/31/24 05:00 Plt Count Cancelled 03/31/24 05:00 PT 11.8 SECONDS (9.4-12.5) 03/28/24 01:39 INR 1.06 03/28/24 01:39 APTT 30.8 SECONDS (24.3-36.9) 03/28/24 01:39 Sodium Cancelled 03/31/24 05:00 Potassium Cancelled 03/31/24 05:00 BUN Cancelled 03/31/24 05:00 Creatinine Cancelled 03/31/24 05:00 Glucose Cancelled 03/31/24 05:00 Phosphorus 3.0 mg/dL (2.5-4.9) 03/29/24 07:47 Magnesium Cancelled 03/31/24 05:00 Total Bilirubin Cancelled 03/31/24 05:00 AST Cancelled 03/31/24 05:00 ALT Cancelled 03/31/24 05:00 Alkaline Phosphatase Cancelled 03/31/24 05:00 Lipase 19 U/L (13-75) 03/28/24 01:39 Home Medications: NK [No Home Meds] 03/28/24 Followup: NONE,NONE [Primary Care Provider] -
[2024-04-03 13:45] LABS: Anti-Nuclear Antibody Screen Negative (Negative)
== END 2024-03-30 22:40 | disposition short-term general hospital (02) | DRG 314 ==
LOC: ER 01:13 → ERHOLD 05:38 → 2ND 07:12 → OBSVTOIN 03-29 18:00
PROVIDERS: ADMIT Internal Medicine; ATTEND Internal Medicine Sleep Medicine
PROC: 4A033R1 Measurement of Arterial Saturation, Peripheral, Percutaneous Approach (ICD-10-PCS; principal; 2024-03-28)
PROC: 5A09457 Assistance with Respiratory Ventilation, 24-96 Consecutive Hours, Continuous Positive Airway Pressure (ICD-10-PCS; 2024-03-28)
DX: I27.20 Pulmonary hypertension, unspecified (principal); I50.33 Acute on chronic diastolic (congestive) heart failure; J96.01 Acute respiratory failure with hypoxia; J44.1 Chronic obstructive pulmonary disease with (acute) exacerbation; J98.01 Acute bronchospasm; F17.290 Nicotine dependence, other tobacco product, uncomplicated; Z86.16 Personal history of COVID-19
CPT/HCPCS: 36415; 36600; 71275; 80048; 80053; 80076; 81001; 82550; 82805; 83690; 83735; 83880; 84100; 84145; 84439; 84443; 84484; 84703; 85025; 85610; 85730; 86038; 86140; 87040; 87389; 87804; 87811; 93005; 93306; 93970; 94660; 94760; G0378; J1650; J1940; J2919; J3535; J7613; J7644; Q0162; Q9967